=== PATIENT | female | born 1960 | race Caucasian/White ===

== ENCOUNTER 2017-08-13 16:55 | Inpatient (IN) | payer BC ==
[~2017-08-13] VITALS: Ht 167.6 cm; Wt 175.0 kg
[~2017-08-13 16:55] MED LIST: CEPH500C5 PO; CITA20TA11 PO; EST1T PO; HYDR30CR79 TOP; LORA1TAB PO; OMEP40CA37 PO; ONDA4TAB6 PO
[2017-08-13 19:26] LABS: BASOPHILS # (AUTO) 0.2 X10'3 (0-0.2); BASOPHILS % (AUTO) 0.8 % (0-1); EOSINOPHILS # (AUTO) 0.2 X10'3 (0-0.9); EOSINOPHILS % (AUTO) 0.9 % (0-6); HEMATOCRIT 48.1 % (35.0-45.0); HEMOGLOBIN 16.1 g/dl (12.0-16.0); LYMPHOCYTES # (AUTO) 0.8 X10'3 (1.1-4.8); LYMPHOCYTES % (AUTO) 4.1 % (21-51); MEAN CORPUSCULAR HEMOGLOBIN 28.8 PG (27.0-31.0); MEAN CORPUSCULAR HGB CONC 33.6 % (33.0-36.5); MEAN CORPUSCULAR VOLUME 85.8 FL (78-98); MEAN PLATELET VOLUME 9.7 FL (7.4-10.4); MONOCYTES % (AUTO) 4.7 % (2-12); NEUTROPHILS # (AUTO) 18.4 X10'3 (1.8-7.7); NEUTROPHILS % (AUTO) 89.5 % (42-75); PLATELET COUNT 242 X10'3 (140-440); RED CELL DISTRIBUTION WIDTH 14.2 % (11.5-14.5); WHITE BLOOD COUNT 20.6 X10'3 (4.5-11.0)
[2017-08-13 19:36] LABS: PROTHROMBIN TIME 10.3 SECONDS (9.0-12.0)
[2017-08-13 19:39] LABS: CLARITY,URINE SLIGHTLY CLOUDY (Clear); COLOR,URINE YELLOW (Yellow); GLUCOSE, URINE NEGATIVE (Neg); KETONES,URINE 40 mg/dl (Neg); LEUKOCYTE ESTERASE ,URINE NEGATIVE (Neg); NITRITES, URINE NEGATIVE (Neg); OCCULT BLOOD,URINE MODERATE (Neg); PH,URINE 5.5 (4.8-8.0); PROTEIN,URINE 30 mg/dl (Neg); UROBILINOGEN,URINE 0.2 E.U/dL (0.2-1.0)
[2017-08-13 19:40] LABS: UA COLLECTION TYPE CLN CATCH MIDSTREAM
[2017-08-13 19:46] LABS: ALANINE AMINOTRANSFERASE 20 U/L (12-78); ALBUMIN 3.8 G/DL (3.4-5.0); ALBUMIN/GLOBULIN RATIO 1.1 (1.1-1.5); ALKALINE PHOSPHATASE 97 IU/L (46-116); ANION GAP 12 (8-16); ASPARTATE AMINO TRANSFERASE 31 U/L (10-37); BLOOD UREA NITROGEN 9 MG/DL (7-18); CALCIUM 9.3 MG/DL (8.5-10.1); CHLORIDE 104 MMOL/L (99-107); CREATININE 0.69 MG/DL (0.40-0.90); GLUCOSE 130 MG/DL (70-104); LIPASE < 50 U/L (73-393); POTASSIUM 3.4 MMOL/L (3.5-5.1); SODIUM 141 MMOL/L (135-145); TOTAL CARBON DIOXIDE 24.7 MMOL/L (24-32); TOTAL PROTEIN 7.3 G/DL (6.4-8.2); eGFR 89 ML/MIN
[2017-08-13 19:48] LABS: MUCUS STRANDS MANY /LPF (Neg); SQUAMOUS EPITHELIAL CELL,UR MODERATE /LPF (FEW)
[2017-08-13 19:50] LABS: BACTERIA,URINE FEW /HPF (Neg)
[2017-08-13] MEDS ORDERED: proCHLORperazine 10 MG/2 ml inj IV ONE (20:15)
[2017-08-13] MEDS ORDERED: normal saline 1000ML IV soln IVB ONE (20:15)
[2017-08-13] MEDS ORDERED: ondansetron/PF 4mg/2ml inj IV ONE (20:15)
[2017-08-13] MEDS ORDERED: LORazepam 2 mg/ml vial IV ONE (20:15)
[2017-08-13] MEDS ORDERED: diphenhydrAMINE 50 mg/ml inj IV ONE (20:15)
[2017-08-13 20:33] LABS: D-DIMER 0.45 MG/L FEU (0-0.50)
[2017-08-13] MEDS ORDERED: aspirin 325mg tablet PO ONE (21:00)
[2017-08-13] MEDS ORDERED: heparin 10,000 units/1 ML INJ IV ONE (21:00)
[2017-08-13] MEDS ORDERED: iohexol 350MG/ML 100ml bottle IV ONE (21:05)
[2017-08-13 21:19] LABS: MAGNESIUM 1.8 MG/DL (1.5-2.4)
[2017-08-13] MEDS ORDERED: metroNIDAZOLE-Flagyl 500mg/NS 100 ML IV STA (21:29)
[2017-08-13] MEDS ORDERED: levoFLOXACIN-Levaquin 750MG/D5 150 ML IV STA (21:29)
[2017-08-13] MEDS: heparin 10,000 units/1 ML INJ IV PRN (21:34)
[2017-08-13] MEDS ORDERED: LORA1TAB PO (22:06)
[2017-08-13 22:25] LABS: ABG BASE EXCESS -2.5 mmol/L (-2.0-3.0); ABG HCO3 21.5 mmol/L (22.0-26.0); ABG OXYGEN SATURATION 93.9 % (95-98); ABG PCO2 (T) 35.4 mmHg (32.0-45.0); ABG PH (T) 7.403 (7.350-7.450); ABG PO2 (T) 66.5 mmHg (83-108); FCOHb 0.4 % (0.5-1.5); FLOW 6 L/min; FMetHb 0.2 % (0.3-1.12); FO2Hb 93.3 % (94-100); PATIENT TEMPERATURE 37.3; TOTAL HEMOGLOBIN 15.2 G/dl (12.0-16.0)
[2017-08-13] MEDS ORDERED: magnesium hydroxide 30ml (MOM) UD suspension PO PRN (23:05)
[2017-08-13] MEDS ORDERED: acetaminophen 325mg tablet PO PRN (23:05)
[2017-08-13] MEDS ORDERED: mag hydrox/Alum hydrox/simeth 30ml oral suspension PO PRN (23:05)
[2017-08-13] MEDS ORDERED: piperacillin/tazo 3.375gm/50ml 50 ML IV STA (23:28)
[2017-08-13 23:33] LABS: URINE AMPHETAMINE SCREEN NEGATIVE (Neg); URINE BARBITUATE SCREEN NEGATIVE (Neg); URINE BENZODIAZEPINES SCREEN NEGATIVE (Neg); URINE CANNABINOID SCREEN POSITIVE (Neg); URINE COCAINE SCREEN NEGATIVE (Neg); URINE METHADONE SCREEN NEGATIVE (Neg); URINE OPIATE SCREEN NEGATIVE (Neg); URINE PHENCYCLIDINE SCREEN NEGATIVE (Neg)
[2017-08-14] LABS: ABG HCO3 24.7 mmol/L (22.0-26.0); ABG OXYGEN SATURATION 98.5 % (95-98); ABG PCO2 (T) 35.9 mmHg (32.0-45.0); ABG PH (T) 7.453 (7.350-7.450); ABG PO2 (T) 125.2 mmHg (83-108); FCOHb 0.1 % (0.5-1.5); FMetHb 0.4 % (0.3-1.12); MINUTE VOLUME 14 L/min; PATIENT TEMPERATURE 36.5; RESPIRATORY RATE 10 b/min; RESPIRATORY RATE (OBSERVED) 20 b/min; TOTAL HEMOGLOBIN 15.6 G/dl (12.0-16.0)
[2017-08-14 03:07] LABS: BASOPHILS % (AUTO) 0.2 % (0-1); EOSINOPHILS # (AUTO) 0.2 X10'3 (0-0.9); EOSINOPHILS % (AUTO) 1.2 % (0-6); HEMATOCRIT 43.1 % (35.0-45.0); HEMOGLOBIN 14.9 g/dl (12.0-16.0); LYMPHOCYTES % (AUTO) 5.9 % (21-51); MEAN CORPUSCULAR HEMOGLOBIN 29.6 PG (27.0-31.0); MEAN CORPUSCULAR HGB CONC 34.7 % (33.0-36.5); MEAN CORPUSCULAR VOLUME 85.3 FL (78-98); MEAN PLATELET VOLUME 9.5 FL (7.4-10.4); MONOCYTES # (AUTO) 1.1 X10'3 (0-0.9); MONOCYTES % (AUTO) 6.4 % (2-12); NEUTROPHILS # (AUTO) 15.1 X10'3 (1.8-7.7); NEUTROPHILS % (AUTO) 86.3 % (42-75); PLATELET COUNT 207 X10'3 (140-440); RED BLOOD COUNT 5.05 X10'6 (4.20-5.60); RED CELL DISTRIBUTION WIDTH 13.7 % (11.5-14.5); WHITE BLOOD COUNT 17.5 X10'3 (4.5-11.0)
[2017-08-14 03:24] LABS: ALANINE AMINOTRANSFERASE 19 U/L (12-78); ALBUMIN 3.1 G/DL (3.4-5.0); ALKALINE PHOSPHATASE 79 IU/L (46-116); ANION GAP 12 (8-16); ASPARTATE AMINO TRANSFERASE 26 U/L (10-37); BILIRUBIN,TOTAL 0.9 MG/DL (0.1-1.0); BLOOD UREA NITROGEN 7 MG/DL (7-18); CALCIUM 8.5 MG/DL (8.5-10.1); CHLORIDE 105 MMOL/L (99-107); GLUCOSE 133 MG/DL (70-104); MAGNESIUM 1.6 MG/DL (1.5-2.4); PHOSPHORUS 1.7 MG/DL (2.3-4.5); SODIUM 141 MMOL/L (135-145); TOTAL CARBON DIOXIDE 23.6 MMOL/L (24-32); TOTAL PROTEIN 6.2 G/DL (6.4-8.2); eGFR 87 ML/MIN
[2017-08-14 03:28] LABS: INR 1.1 INR
[2017-08-14 03:30] LABS: POTASSIUM 2.9 MMOL/L (3.5-5.1)
[2017-08-14 03:34] LABS: PARTIAL THROMBOPLASTIN TIME 94 SECONDS (22-32)
[2017-08-14] MEDS ORDERED: magnesium Cl slow-release 64mg tablet PO PRN (03:35)
[2017-08-14] MEDS ORDERED: potassium Cl 20 mEq SR tablet PO PRN (03:35)
[2017-08-14] MEDS: piperacillin/tazo 3.375gm/50ml 50 ML IV SCH ×4 (03:59→19:23)
[2017-08-14] MEDS: potassium Cl 20 mEq SR tablet PO PRN ×2 (04:00→08:44)
[2017-08-14] MEDS ORDERED: metoclopramide 5 mg/ml inj IV ONE (04:10)
[2017-08-14] MEDS ORDERED: nitroGLYCERIN-Tridil 50MG/D5W 250 ML IV PRN (04:25)
[2017-08-14] MEDS: pantoprazole 40mg Tablet.DR PO SCH (07:53)
[2017-08-14] MEDS ORDERED: metroNIDAZOLE-Flagyl 500mg/NS 100 ML IV SCH (08:00)
[2017-08-14] MEDS: estradiol 1mg tablet PO SCH (08:45)
[2017-08-14] MEDS: K and/or MAG REPLACEMENT MC SCH (10:15)
[2017-08-14] MEDS ORDERED: regadenoson 0.4mg/5ml syringe IV ONE (12:50)
[2017-08-14] MEDS ORDERED: nitroGLYCERIN 0.4mg SUBLingual tab SL PRN (12:50)
[2017-08-14] MEDS ORDERED: CAFFEINE CITRATE 60 MG/3 ML injection vial IV PRN (12:50)
[2017-08-14] MEDS ORDERED: metoprolol tartrate 1mg/ml inj IV PRN (12:50)
[2017-08-14] MEDS ORDERED: carVEDilol 3.125mg tablet PO ONE (13:40)
[2017-08-14] MEDS ORDERED: regadenoson 0.4mg/5ml syringe IV PRN (13:40)
[2017-08-14] MEDS: heparin 10,000 units/1 ML INJ IV PRN (15:19)
[2017-08-14] MEDS ORDERED: ondansetron/PF 4mg/2ml inj IV PRN (17:45)
[2017-08-14] MEDS: chloestyramine/aspartame 4gm packet PO SCH (17:56)
[2017-08-14 19:00] VITALS: BP 146/98
[2017-08-14] MEDS: carvedilol 6.25mg tablet PO SCH (19:23)
[2017-08-14] MEDS ORDERED: LORazepam 1 MG tablet PO SCH (19:35)
[2017-08-14] MEDS: LORazepam 1 MG tablet PO PRN (19:56)
[2017-08-14] MEDS ORDERED: heparin 10,000 units/1 ML INJ IV PRN (20:40)
[2017-08-14 23:00] VITALS: BP 148/68
[2017-08-15] VITALS (14 sets, daily range): BP systolic 95–143; BP diastolic 52–94
[2017-08-15] MEDS: piperacillin/tazo 3.375gm/50ml 50 ML IV SCH ×4 (01:01→19:06)
[2017-08-15 04:26] LABS: BASOPHILS # (AUTO) 0.1 X10'3 (0-0.2); BASOPHILS % (AUTO) 0.4 % (0-1); EOSINOPHILS # (AUTO) 0.2 X10'3 (0-0.9); EOSINOPHILS % (AUTO) 1.5 % (0-6); HEMATOCRIT 40.3 % (35.0-45.0); LYMPHOCYTES # (AUTO) 1.4 X10'3 (1.1-4.8); LYMPHOCYTES % (AUTO) 8.9 % (21-51); MEAN CORPUSCULAR HEMOGLOBIN 29.6 PG (27.0-31.0); MEAN CORPUSCULAR HGB CONC 34.6 % (33.0-36.5); MEAN CORPUSCULAR VOLUME 85.3 FL (78-98); MEAN PLATELET VOLUME 9.4 FL (7.4-10.4); MONOCYTES % (AUTO) 6.3 % (2-12); NEUTROPHILS # (AUTO) 12.8 X10'3 (1.8-7.7); NEUTROPHILS % (AUTO) 82.9 % (42-75); PLATELET COUNT 203 X10'3 (140-440); RED BLOOD COUNT 4.73 X10'6 (4.20-5.60); RED CELL DISTRIBUTION WIDTH 13.8 % (11.5-14.5); WHITE BLOOD COUNT 15.4 X10'3 (4.5-11.0)
[2017-08-15 04:43] LABS: PROTHROMBIN TIME 10.5 SECONDS (9.0-12.0)
[2017-08-15 04:44] LABS: ALANINE AMINOTRANSFERASE 25 U/L (12-78); ALBUMIN 2.9 G/DL (3.4-5.0); ALBUMIN/GLOBULIN RATIO 0.9 (1.1-1.5); ALKALINE PHOSPHATASE 69 IU/L (46-116); ANION GAP 11 (8-16); ASPARTATE AMINO TRANSFERASE 19 U/L (10-37); BILIRUBIN,TOTAL 1.3 MG/DL (0.1-1.0); BLOOD UREA NITROGEN 8 MG/DL (7-18); BUN/CREATININE RATIO 11.9 (6.6-38.0); CALCIUM 8.7 MG/DL (8.5-10.1); CHLORIDE 104 MMOL/L (99-107); CREATININE 0.67 MG/DL (0.40-0.90); GLUCOSE 113 MG/DL (70-104); MAGNESIUM 1.7 MG/DL (1.5-2.4); PHOSPHORUS 1.9 MG/DL (2.3-4.5); POTASSIUM 3.4 MMOL/L (3.5-5.1); SODIUM 140 MMOL/L (135-145); TOTAL CARBON DIOXIDE 24.9 MMOL/L (24-32); TOTAL PROTEIN 6.1 G/DL (6.4-8.2); eGFR > 90 ML/MIN
[2017-08-15] MEDS: heparin 10,000 units/1 ML INJ IV PRN (05:13)
[2017-08-15] MEDS: pantoprazole 40mg Tablet.DR PO SCH (07:30)
[2017-08-15] MEDS: carvedilol 6.25mg tablet PO SCH ×2 (08:00→19:06)
[2017-08-15] MEDS: K and/or MAG REPLACEMENT MC SCH (08:00)
[2017-08-15] MEDS: estradiol 1mg tablet PO SCH (08:00)
[2017-08-15] MEDS ORDERED: regadenoson 0.4mg/5ml syringe IV ONE (09:42)
[2017-08-15] MEDS ORDERED: potassium phosphate inj 15 MMOL in normal saline 250ml IV soln 245 ML IV ONE (11:05)
[2017-08-15 11:26] LABS: C DIFF ANTIGEN NEGATIVE (NEGATIVE); C DIFF SPECIMEN=DIARRHEA? ACCEPTABLE; C DIFFICILE TOXINS A&B NEGATIVE (Neg)
[2017-08-15 11:32] LABS: CRYPTOSPORIDIUM AG NEGATIVE (Neg); GIARDIA LAMBLIA AG NEGATIVE (Neg)
[2017-08-15] MEDS: chloestyramine/aspartame 4gm packet PO SCH ×2 (12:35→16:35)
[2017-08-15] MEDS: aspirin 81mg tablet.DR PO SCH (12:35)
[2017-08-15] MEDS: lactobacillus rhamnosus 10,000 MMU CELLS/CAPSULE PO SCH (19:09)
[2017-08-15] MEDS: heparin, porcine 5000 units/ml vial SQ SCH (19:09)
[2017-08-15] MEDS: LORazepam 1 MG tablet PO PRN (21:33)
[2017-08-16] MEDS: piperacillin/tazo 3.375gm/50ml 50 ML IV SCH ×3 (01:20→14:00)
[2017-08-16 03:00] VITALS: BP 97/60
[2017-08-16 05:19] LABS: BASOPHILS % (AUTO) 0.3 % (0-1); EOSINOPHILS # (AUTO) 0.1 X10'3 (0-0.9); EOSINOPHILS % (AUTO) 2.1 % (0-6); HEMATOCRIT 39.6 % (35.0-45.0); HEMOGLOBIN 13.2 g/dl (12.0-16.0); LYMPHOCYTES # (AUTO) 1.7 X10'3 (1.1-4.8); LYMPHOCYTES % (AUTO) 26.1 % (21-51); MEAN CORPUSCULAR HEMOGLOBIN 29.1 PG (27.0-31.0); MEAN CORPUSCULAR HGB CONC 33.3 % (33.0-36.5); MEAN CORPUSCULAR VOLUME 87.4 FL (78-98); MEAN PLATELET VOLUME 9.6 FL (7.4-10.4); MONOCYTES # (AUTO) 0.5 X10'3 (0-0.9); MONOCYTES % (AUTO) 7.4 % (2-12); NEUTROPHILS # (AUTO) 4.2 X10'3 (1.8-7.7); NEUTROPHILS % (AUTO) 64.1 % (42-75); PLATELET COUNT 165 X10'3 (140-440); RED BLOOD COUNT 4.53 X10'6 (4.20-5.60); RED CELL DISTRIBUTION WIDTH 13.9 % (11.5-14.5); WHITE BLOOD COUNT 6.5 X10'3 (4.5-11.0)
[2017-08-16 05:34] LABS: PARTIAL THROMBOPLASTIN TIME 28 SECONDS (22-32)
[2017-08-16 05:46] LABS: ALANINE AMINOTRANSFERASE 23 U/L (12-78); ALBUMIN 2.6 G/DL (3.4-5.0); ALBUMIN/GLOBULIN RATIO 0.8 (1.1-1.5); ALKALINE PHOSPHATASE 57 IU/L (46-116); ANION GAP 8 (8-16); ASPARTATE AMINO TRANSFERASE 15 U/L (10-37); BILIRUBIN,TOTAL 0.8 MG/DL (0.1-1.0); BLOOD UREA NITROGEN 9 MG/DL (7-18); BUN/CREATININE RATIO 10.8 (6.6-38.0); CALCIUM 9.2 MG/DL (8.5-10.1); CHLORIDE 107 MMOL/L (99-107); CREATININE 0.83 MG/DL (0.40-0.90); GLUCOSE 95 MG/DL (70-104); PHOSPHORUS 2.8 MG/DL (2.3-4.5); POTASSIUM 3.6 MMOL/L (3.5-5.1); SODIUM 144 MMOL/L (135-145); TOTAL CARBON DIOXIDE 29.1 MMOL/L (24-32); TOTAL PROTEIN 5.8 G/DL (6.4-8.2); eGFR 72 ML/MIN
[2017-08-16 06:00] VITALS: BP 113/64
[2017-08-16] MEDS: carvedilol 6.25mg tablet PO SCH (07:38)
[2017-08-16] MEDS: estradiol 1mg tablet PO SCH (07:38)
[2017-08-16] MEDS: pantoprazole 40mg Tablet.DR PO SCH (07:38)
[2017-08-16] MEDS: lactobacillus rhamnosus 10,000 MMU CELLS/CAPSULE PO SCH (07:38)
[2017-08-16] MEDS: aspirin 81mg tablet.DR PO SCH (07:38)
[2017-08-16] MEDS: heparin, porcine 5000 units/ml vial SQ SCH (07:38)
[2017-08-16] MEDS: K and/or MAG REPLACEMENT MC SCH (07:51)
[2017-08-16] MEDS: chloestyramine/aspartame 4gm packet PO SCH (10:24)
[2017-08-16 11:00] VITALS: BP 93/60
[2017-08-16] MEDS ORDERED: POTA20TA10 PO (11:50)
[2017-08-16] MEDS ORDERED: CARV6.253 PO (11:50)
[2017-08-16] MEDS ORDERED: AMOX-580 PO (11:50)
[2017-08-16] MEDS ORDERED: QUELT PO (11:50)
== END 2017-08-16 14:20 | disposition home or self-care (01) | DRG 871 ==
LOC: ER 16:56 → ED HOLD 22:43 → PCU 3S 08-14 15:35
PROVIDERS: ADMIT Internal Medicine Critical Care Medicine; ATTEND Family Medicine
PROC: 5A09357 Assistance with Respiratory Ventilation, Less than 24 Consecutive Hours, Continuous Positive Airway Pressure (ICD-10-PCS; principal; 2017-08-13)
DX: A41.9 Sepsis, unspecified organism (principal); J81.0 Acute pulmonary edema; J90 Pleural effusion, not elsewhere classified; J18.9 Pneumonia, unspecified organism; Z68.44 Body mass index [BMI] 60.0-69.9, adult; F12.90 Cannabis use, unspecified, uncomplicated; J02.9 Acute pharyngitis, unspecified; F17.200 Nicotine dependence, unspecified, uncomplicated; K52.9 Noninfective gastroenteritis and colitis, unspecified; I10 Essential (primary) hypertension; K21.0 Gastro-esophageal reflux disease with esophagitis; E87.6 Hypokalemia; E83.39 Other disorders of phosphorus metabolism; K27.9 Peptic ulcer, site unspecified, unspecified as acute or chronic, without hemorrhage or perforation; K63.5 Polyp of colon; R09.02 Hypoxemia; Z79.899 Other long term (current) drug therapy; Z87.11 Personal history of peptic ulcer disease; Z88.6 Allergy status to analgesic agent; Z90.710 Acquired absence of both cervix and uterus; Z90.49 Acquired absence of other specified parts of digestive tract
CPT/HCPCS: 36415; 36600; 71045; 71046; 71275; 74176; 78452; 80053; 80305; 81001; 82803; 83605; 83690; 83735; 83880; 84100; 84132; 84145; 84484; 85018; 85025; 85379; 85610; 85730; 87040; 87045; 87046; 87070; 87088; 87324; 87328; 87329; 87336; 87449; 89055; 93005; 93017; 93306; 94660; 99285; A9500; J0780; J1200; J1644; J1956; J2060; J2405; J2543; J2765; J3490; J7030; Q9967

== ENCOUNTER 2017-08-28 16:27 | Emergency (ER) | payer BC ==
[~2017-08-28] VITALS: Ht 172.7 cm; Wt 63.7 kg
[~2017-08-28 16:27] MED LIST changes: +AMOX-580 PO; +CARV6.253 PO; -CEPH500C5 PO; -CITA20TA11 PO; -HYDR30CR79 TOP; -ONDA4TAB6 PO; +POTA20TA10 PO; +QUELT PO
[2017-08-28 17:38] VITALS: BP 150/89
== END 2017-08-28 17:40 | disposition home or self-care (01) ==
LOC: ER 16:28
DX: F41.0 Panic disorder [episodic paroxysmal anxiety] (principal); F12.90 Cannabis use, unspecified, uncomplicated; I21.4 Non-ST elevation (NSTEMI) myocardial infarction; K21.9 Gastro-esophageal reflux disease without esophagitis; Z90.49 Acquired absence of other specified parts of digestive tract; Z90.710 Acquired absence of both cervix and uterus; Z79.899 Other long term (current) drug therapy; Z88.5 Allergy status to narcotic agent; Z88.8 Allergy status to other drugs, medicaments and biological substances
CPT/HCPCS: 93005; 99283; 99284

== ENCOUNTER 2017-12-16 12:16 | Emergency (ER) | payer BC ==
[~2017-12-16] VITALS: Ht 167.6 cm; Wt 80.0 kg
[~2017-12-16 12:16] MED LIST changes: -AMOX-580 PO
[2017-12-16] MEDS ORDERED: dexamethasone 4mg/ml inj IV ONE (12:35)
[2017-12-16] MEDS ORDERED: proCHLORperazine 10 MG/2 ml inj IV ONE (12:35)
[2017-12-16 13:07] LABS: BASOPHILS # (AUTO) 0.1 X10'3 (0-0.2); BASOPHILS % (AUTO) 0.3 % (0-1); EOSINOPHILS # (AUTO) 0.2 X10'3 (0-0.9); EOSINOPHILS % (AUTO) 1.4 % (0-6); HEMATOCRIT 45.5 % (35.0-45.0); HEMOGLOBIN 15.4 g/dl (12.0-16.0); LYMPHOCYTES # (AUTO) 1.2 X10'3 (1.1-4.8); LYMPHOCYTES % (AUTO) 7.3 % (21-51); MEAN CORPUSCULAR HEMOGLOBIN 28.9 PG (27.0-31.0); MEAN CORPUSCULAR HGB CONC 33.9 % (33.0-36.5); MEAN CORPUSCULAR VOLUME 85.3 FL (78-98); MEAN PLATELET VOLUME 9.4 FL (7.4-10.4); MONOCYTES # (AUTO) 0.3 X10'3 (0-0.9); MONOCYTES % (AUTO) 1.8 % (2-12); NEUTROPHILS # (AUTO) 14.7 X10'3 (1.8-7.7); NEUTROPHILS % (AUTO) 89.2 % (42-75); PLATELET COUNT 296 X10'3 (140-440); RED BLOOD COUNT 5.34 X10'6 (4.20-5.60); RED CELL DISTRIBUTION WIDTH 13.3 % (11.5-14.5); WHITE BLOOD COUNT 16.5 X10'3 (4.5-11.0)
[2017-12-16 13:11] LABS: URINE HCG NEGATIVE (NEG)
[2017-12-16] MEDS ORDERED: normal saline 1000ml 1,000 ML IV ONE (13:15)
[2017-12-16 13:17] LABS: PARTIAL THROMBOPLASTIN TIME 26 SECONDS (22-32); PROTHROMBIN TIME 10.7 SECONDS (9.0-12.0)
[2017-12-16 13:23] LABS: ALANINE AMINOTRANSFERASE 20 U/L (12-78); ALBUMIN 4.2 G/DL (3.4-5.0); ALBUMIN/GLOBULIN RATIO 1.2 (1.1-1.5); ALKALINE PHOSPHATASE 115 IU/L (46-116); ANION GAP 17 (8-16); ASPARTATE AMINO TRANSFERASE 19 U/L (10-37); BILIRUBIN,TOTAL 0.7 MG/DL (0.1-1.0); BLOOD UREA NITROGEN 11 MG/DL (7-18); BUN/CREATININE RATIO 12.9 (6.6-38.0); CALCIUM 8.8 MG/DL (8.5-10.1); CHLORIDE 105 MMOL/L (99-107); CREATININE 0.85 MG/DL (0.40-0.90); GLUCOSE 119 MG/DL (70-104); POTASSIUM 3.5 MMOL/L (3.5-5.1); SODIUM 139 MMOL/L (135-145); TOTAL CARBON DIOXIDE 16.6 MMOL/L (24-32); TOTAL PROTEIN 7.8 G/DL (6.4-8.2); eGFR 69 ML/MIN
[2017-12-16 13:32] LABS: CLARITY,URINE CLEAR (Clear); COLOR,URINE YELLOW (Yellow); GLUCOSE, URINE NEGATIVE (Neg); KETONES,URINE 40 mg/dl (Neg); LEUKOCYTE ESTERASE ,URINE NEGATIVE (Neg); NITRITES, URINE NEGATIVE (Neg); OCCULT BLOOD,URINE TRACE-INTACT (Neg); PROTEIN,URINE NEGATIVE (Neg); UROBILINOGEN,URINE 0.2 E.U/dL (0.2-1.0)
[2017-12-16] MEDS ORDERED: LORazepam 2 mg/ml vial IV ONE (13:35)
[2017-12-16] MEDS ORDERED: diphenhydrAMINE 50 mg/ml inj IV ONE (13:35)
[2017-12-16 13:45] LABS: UA COLLECTION TYPE OTHER
[2017-12-16 13:46] LABS: RBC,URINE 0-2 /HPF (0-2); SQUAMOUS EPITHELIAL CELL,UR MODERATE /LPF (FEW); WBC,URINE 0-4 /HPF (0-4)
[2017-12-16 13:47] LABS: BACTERIA,URINE FEW /HPF (Neg); MUCUS STRANDS FEW /LPF (Neg); YEAST FEW /HPF (NEGATIVE)
[2017-12-16] MEDS ORDERED: ONDA8TAB9 PO (14:22)
[2017-12-16 15:27] VITALS: BP 150/78
== END 2017-12-16 15:32 | disposition home or self-care (01) ==
LOC: ER 12:16
DX: K52.9 Noninfective gastroenteritis and colitis, unspecified (principal); K21.9 Gastro-esophageal reflux disease without esophagitis; F12.90 Cannabis use, unspecified, uncomplicated; Z88.5 Allergy status to narcotic agent; Z90.49 Acquired absence of other specified parts of digestive tract; Z90.710 Acquired absence of both cervix and uterus; Z79.899 Other long term (current) drug therapy
CPT/HCPCS: 36415; 71045; 80053; 81001; 81025; 84484; 85025; 85610; 85730; 93005; 96361; 96374; 96375; 99285; J0780; J1100; J1200; J2060; J7030; J7040

== ENCOUNTER 2017-12-19 18:05 | Emergency (ER) | payer BC ==
[~2017-12-19] VITALS: Ht 167.6 cm; Wt 85.0 kg
[~2017-12-19 18:05] MED LIST changes: +ONDA8TAB9 PO
[2017-12-19] MEDS ORDERED: proCHLORperazine 10 MG/2 ml inj IV PRN (18:35)
[2017-12-19 18:37] LABS: BASOPHILS # (AUTO) 0.1 X10'3 (0-0.2); BASOPHILS % (AUTO) 0.3 % (0-1); EOSINOPHILS # (AUTO) 0.1 X10'3 (0-0.9); EOSINOPHILS % (AUTO) 0.7 % (0-6); HEMATOCRIT 49.7 % (35.0-45.0); HEMOGLOBIN 16.9 g/dl (12.0-16.0); LYMPHOCYTES # (AUTO) 3.4 X10'3 (1.1-4.8); LYMPHOCYTES % (AUTO) 21.1 % (21-51); MEAN CORPUSCULAR HEMOGLOBIN 28.5 PG (27.0-31.0); MEAN CORPUSCULAR VOLUME 83.7 FL (78-98); MEAN PLATELET VOLUME 9.3 FL (7.4-10.4); MONOCYTES # (AUTO) 1.2 X10'3 (0-0.9); MONOCYTES % (AUTO) 7.2 % (2-12); NEUTROPHILS # (AUTO) 11.4 X10'3 (1.8-7.7); NEUTROPHILS % (AUTO) 70.7 % (42-75); PLATELET COUNT 374 X10'3 (140-440); RED BLOOD COUNT 5.94 X10'6 (4.20-5.60); RED CELL DISTRIBUTION WIDTH 13.1 % (11.5-14.5); WHITE BLOOD COUNT 16.1 X10'3 (4.5-11.0)
[2017-12-19] MEDS ORDERED: normal saline 1000ml 1,000 ML IV ONE (18:40)
[2017-12-19 18:48] LABS: PROTHROMBIN TIME 10.8 SECONDS (9.0-12.0)
[2017-12-19] MEDS ORDERED: normal saline 1000ML IV soln IV ONE (18:50)
[2017-12-19 18:52] LABS: ALANINE AMINOTRANSFERASE 28 U/L (12-78); ALBUMIN 4.2 G/DL (3.4-5.0); ALBUMIN/GLOBULIN RATIO 1.1 (1.1-1.5); ALKALINE PHOSPHATASE 100 IU/L (46-116); ANION GAP 14 (8-16); ASPARTATE AMINO TRANSFERASE 16 U/L (10-37); BILIRUBIN,TOTAL 0.9 MG/DL (0.1-1.0); BLOOD UREA NITROGEN 17 MG/DL (7-18); CALCIUM 9.6 MG/DL (8.5-10.1); CHLORIDE 97 MMOL/L (99-107); CREATININE 1.06 MG/DL (0.40-0.90); GLUCOSE 160 MG/DL (70-104); SODIUM 134 MMOL/L (135-145); TOTAL CARBON DIOXIDE 23.5 MMOL/L (24-32); TOTAL PROTEIN 7.9 G/DL (6.4-8.2); eGFR 54 ML/MIN
[2017-12-19 18:56] LABS: POTASSIUM 2.6 MMOL/L (3.5-5.1)
[2017-12-19] MEDS: potassium 10mEq/100ml NS w/LIDOcaine (10mg/bag) IV SCH ×2 (19:23→21:08)
[2017-12-19 20:35] LABS: CLARITY,URINE CLEAR (Clear); COLOR,URINE YELLOW (Yellow); GLUCOSE, URINE NEGATIVE (Neg); KETONES,URINE TRACE mg/dl (Neg); LEUKOCYTE ESTERASE ,URINE TRACE (Neg); NITRITES, URINE NEGATIVE (Neg); OCCULT BLOOD,URINE TRACE-LYSED (Neg); PH,URINE 6.5 (4.8-8.0); PROTEIN,URINE NEGATIVE (Neg); UROBILINOGEN,URINE 0.2 E.U/dL (0.2-1.0)
[2017-12-19 20:41] LABS: UA COLLECTION TYPE CLN CATCH MIDSTREAM
[2017-12-19 20:43] LABS: BACTERIA,URINE FEW /HPF (Neg); MUCUS STRANDS NONE SEEN /LPF (Neg); RBC,URINE 0-2 /HPF (0-2); SQUAMOUS EPITHELIAL CELL,UR FEW /LPF (FEW); WBC,URINE 0-4 /HPF (0-4)
[2017-12-19 21:12] VITALS: BP 169/88
== END 2017-12-19 21:52 | disposition home or self-care (01) ==
LOC: ER 18:06
DX: R11.2 Nausea with vomiting, unspecified (principal); R19.7 Diarrhea, unspecified; E87.6 Hypokalemia; K21.9 Gastro-esophageal reflux disease without esophagitis; F12.90 Cannabis use, unspecified, uncomplicated; Z90.49 Acquired absence of other specified parts of digestive tract; Z90.710 Acquired absence of both cervix and uterus; Z88.5 Allergy status to narcotic agent; Z79.899 Other long term (current) drug therapy
CPT/HCPCS: 36415; 80053; 81001; 85025; 85610; 87088; 96365; 96366; 96375; 99284; J0780; J3480; 96376

== ENCOUNTER 2018-01-06 12:14 | Emergency (ER) | payer BC ==
[~2018-01-06] VITALS: Ht 167.6 cm; Wt 70.9 kg
[2018-01-06] MEDS ORDERED: ketorolac tromethamine 15mg/ml inj. IV ONE (13:40)
[2018-01-06] MEDS ORDERED: normal saline 1000ML IV soln IV ONE (13:40)
[2018-01-06] MEDS ORDERED: ondansetron/PF 4mg/2ml inj IV ONE (13:45)
[2018-01-06] MEDS ORDERED: fentaNYL/PF 50MCG/1 ML 2ML syringe IV ONE (14:05)
[2018-01-06 14:11] LABS: URINE HCG NEGATIVE (NEG)
[2018-01-06] MEDS ORDERED: LORazepam 2 mg/ml vial IV ONE (14:15)
[2018-01-06 14:16] LABS: COLOR,URINE RED (Yellow)
[2018-01-06 14:21] LABS: CLARITY,URINE BLOODY (Clear); UA COLLECTION TYPE NON-SPECIFIED
[2018-01-06 14:28] LABS: RBC,URINE TNTC /HPF (0-2)
[2018-01-06 14:33] LABS: WBC,URINE 50-100 /HPF (0-4)
[2018-01-06 14:34] LABS: HEMATOCRIT 48.7 % (35.0-45.0); RED BLOOD COUNT 5.71 X10'6 (4.20-5.60); WHITE BLOOD COUNT 18.1 X10'3 (4.5-11.0)
[2018-01-06 14:35] LABS: BASOPHILS # (AUTO) 0.1 X10'3 (0-0.2); BASOPHILS % (AUTO) 0.5 % (0-1); EOSINOPHILS % (AUTO) 0 % (0-6); LYMPHOCYTES # (AUTO) 1.6 X10'3 (1.1-4.8); LYMPHOCYTES % (AUTO) 8.7 % (21-51); MEAN CORPUSCULAR HEMOGLOBIN 29.7 PG (27.0-31.0); MEAN CORPUSCULAR HGB CONC 34.8 % (33.0-36.5); MEAN CORPUSCULAR VOLUME 85.3 FL (78-98); MEAN PLATELET VOLUME 9.9 FL (7.4-10.4); MONOCYTES % (AUTO) 5.4 % (2-12); NEUTROPHILS # (AUTO) 15.4 X10'3 (1.8-7.7); NEUTROPHILS % (AUTO) 85.4 % (42-75); PLATELET COUNT 382 X10'3 (140-440)
[2018-01-06 14:36] LABS: BACTERIA,URINE NONE SEEN /HPF (Neg); SQUAMOUS EPITHELIAL CELL,UR MANY /LPF (FEW)
[2018-01-06 14:40] LABS: ALANINE AMINOTRANSFERASE 20 U/L (12-78); ALBUMIN 4.5 G/DL (3.4-5.0); ALBUMIN/GLOBULIN RATIO 1.3 (1.1-1.5); ALKALINE PHOSPHATASE 90 IU/L (46-116); ANION GAP 16 (8-16); ASPARTATE AMINO TRANSFERASE 13 U/L (10-37); BILIRUBIN,TOTAL 0.9 MG/DL (0.1-1.0); BLOOD UREA NITROGEN 15 MG/DL (7-18); BUN/CREATININE RATIO 11.5 (6.6-38.0); CALCIUM 10.6 MG/DL (8.5-10.1); CHLORIDE 99 MMOL/L (99-107); CREATININE 1.31 MG/DL (0.40-0.90); GLUCOSE 112 MG/DL (70-104); POTASSIUM 3.7 MMOL/L (3.5-5.1); SODIUM 137 MMOL/L (135-145); TOTAL CARBON DIOXIDE 22.4 MMOL/L (24-32); TOTAL PROTEIN 8.1 G/DL (6.4-8.2); eGFR 42 ML/MIN
[2018-01-06] MEDS ORDERED: CefTRIAXone/D5W-Rocephin 1gm 50 ML IV ONE (14:45)
[2018-01-06 15:30] VITALS: BP 122/62
[2018-01-06] MEDS ORDERED: CIPR-230 PO (15:30)
[2018-01-06 15:37] LABS: CLARITY,URINE CLOUDY (Clear); COLOR,URINE RED (Yellow); GLUCOSE, URINE NEGATIVE (Neg); KETONES,URINE 40 mg/dl (Neg); LEUKOCYTE ESTERASE ,URINE LARGE (Neg); NITRITES, URINE NEGATIVE (Neg); OCCULT BLOOD,URINE LARGE (Neg); PROTEIN,URINE 100 mg/dl (Neg); UROBILINOGEN,URINE 0.2 E.U/dL (0.2-1.0)
[2018-01-06 15:39] LABS: UA COLLECTION TYPE CLN CATCH MIDSTREAM
[2018-01-06] MEDS ORDERED: PHE12.5T PO (15:44)
[2018-01-06 15:49] LABS: BACTERIA,URINE 2+ /HPF (Neg); RBC,URINE TNTC /HPF (0-2); SQUAMOUS EPITHELIAL CELL,UR MODERATE /LPF (FEW); WBC,URINE 50-100 /HPF (0-4)
== END 2018-01-06 16:08 | disposition home or self-care (01) ==
LOC: ER 12:14
DX: N39.0 Urinary tract infection, site not specified (principal); R11.2 Nausea with vomiting, unspecified; K21.9 Gastro-esophageal reflux disease without esophagitis; F12.90 Cannabis use, unspecified, uncomplicated; Z87.11 Personal history of peptic ulcer disease; Z87.442 Personal history of urinary calculi; Z90.49 Acquired absence of other specified parts of digestive tract; Z90.710 Acquired absence of both cervix and uterus; Z88.5 Allergy status to narcotic agent; Z79.899 Other long term (current) drug therapy; Z95.5 Presence of coronary angioplasty implant and graft
CPT/HCPCS: 36415; 80053; 81001; 81025; 85025; 87077; 87088; 96361; 96365; 96375; 99284; J0696; J2060; J2405; J3010

== ENCOUNTER 2018-01-09 10:01 | Emergency (ER) | payer BC ==
[~2018-01-09] VITALS: Ht 167.6 cm; Wt 71.0 kg
[~2018-01-09 10:01] MED LIST changes: +CIPR-230 PO; +PHE12.5T PO
[2018-01-09 11:03] LABS: INR 1.1 INR
[2018-01-09 11:09] LABS: ALANINE AMINOTRANSFERASE 19 U/L (12-78); ALBUMIN 3.9 G/DL (3.4-5.0); ALBUMIN/GLOBULIN RATIO 1.1 (1.1-1.5); ALKALINE PHOSPHATASE 94 IU/L (46-116); ANION GAP 18 (8-16); ASPARTATE AMINO TRANSFERASE 15 U/L (10-37); BLOOD UREA NITROGEN 9 MG/DL (7-18); BUN/CREATININE RATIO 9.7 (6.6-38.0); CALCIUM 9.7 MG/DL (8.5-10.1); CHLORIDE 99 MMOL/L (99-107); CREATININE 0.93 MG/DL (0.40-0.90); GLUCOSE 108 MG/DL (70-104); SODIUM 138 MMOL/L (135-145); TOTAL CARBON DIOXIDE 20.7 MMOL/L (24-32); TOTAL PROTEIN 7.5 G/DL (6.4-8.2); eGFR 63 ML/MIN
[2018-01-09 11:11] LABS: POTASSIUM 2.9 MMOL/L (3.5-5.1)
[2018-01-09] MEDS ORDERED: proCHLORperazine 10 MG/2 ml inj IV ONE (11:20)
[2018-01-09] MEDS ORDERED: potassium 10mEq/100ml NS w/LIDOcaine (10mg/bag) IV ONE (11:20)
[2018-01-09] MEDS ORDERED: normal saline 1000ML IV soln IVB ONE (11:20)
[2018-01-09 11:37] LABS: BASOPHILS % (AUTO) 0 % (0-1); EOSINOPHILS % (AUTO) 0.3 % (0-6); HEMATOCRIT 48.4 % (35.0-45.0); HEMOGLOBIN 16.4 g/dl (12.0-16.0); LYMPHOCYTES # (AUTO) 1.7 X10'3 (1.1-4.8); LYMPHOCYTES % (AUTO) 10.4 % (21-51); MEAN CORPUSCULAR HEMOGLOBIN 28.8 PG (27.0-31.0); MEAN CORPUSCULAR HGB CONC 33.8 % (33.0-36.5); MEAN CORPUSCULAR VOLUME 85.1 FL (78-98); MEAN PLATELET VOLUME 9.7 FL (7.4-10.4); MONOCYTES # (AUTO) 0.9 X10'3 (0-0.9); MONOCYTES % (AUTO) 5.8 % (2-12); NEUTROPHILS # (AUTO) 13.5 X10'3 (1.8-7.7); NEUTROPHILS % (AUTO) 83.5 % (42-75); PLATELET COUNT 304 X10'3 (140-440); RED BLOOD COUNT 5.69 X10'6 (4.20-5.60); RED CELL DISTRIBUTION WIDTH 12.9 % (11.5-14.5); WHITE BLOOD COUNT 16.1 X10'3 (4.5-11.0)
[2018-01-09 12:07] LABS: URINE HCG NEGATIVE (NEG)
[2018-01-09 12:21] LABS: CLARITY,URINE SLIGHTLY CLOUDY (Clear); COLOR,URINE YELLOW (Yellow); GLUCOSE, URINE NEGATIVE (Neg); KETONES,URINE >=80 mg/dl (Neg); LEUKOCYTE ESTERASE ,URINE LARGE (Neg); NITRITES, URINE NEGATIVE (Neg); OCCULT BLOOD,URINE LARGE (Neg); PROTEIN,URINE 100 mg/dl (Neg); UA COLLECTION TYPE CLN CATCH MIDSTREAM; UROBILINOGEN,URINE 0.2 E.U/dL (0.2-1.0)
[2018-01-09 12:28] LABS: MUCUS STRANDS MODERATE /LPF (Neg); SQUAMOUS EPITHELIAL CELL,UR MANY /LPF (FEW)
[2018-01-09 12:29] LABS: WBC,URINE TNTC /HPF (0-4)
[2018-01-09 12:30] LABS: RBC,URINE 50-100 /HPF (0-2)
[2018-01-09 12:40] LABS: BACTERIA,URINE 1+ /HPF (Neg)
[2018-01-09 12:47] LABS: URINE AMPHETAMINE SCREEN NEGATIVE (Neg); URINE BARBITUATE SCREEN NEGATIVE (Neg); URINE BENZODIAZEPINES SCREEN NEGATIVE (Neg); URINE CANNABINOID SCREEN POSITIVE (Neg); URINE COCAINE SCREEN NEGATIVE (Neg); URINE METHADONE SCREEN NEGATIVE (Neg); URINE OPIATE SCREEN NEGATIVE (Neg); URINE PHENCYCLIDINE SCREEN NEGATIVE (Neg)
[2018-01-09] MEDS ORDERED: POTA10CA44 PO (13:36)
[2018-01-09 14:31] VITALS: BP 173/108
== END 2018-01-09 14:43 | disposition home or self-care (01) ==
LOC: ER 10:02
DX: R11.2 Nausea with vomiting, unspecified (principal); F15.10 Other stimulant abuse, uncomplicated; N39.0 Urinary tract infection, site not specified; K21.9 Gastro-esophageal reflux disease without esophagitis; Z90.49 Acquired absence of other specified parts of digestive tract; Z90.710 Acquired absence of both cervix and uterus; Z88.5 Allergy status to narcotic agent; Z79.899 Other long term (current) drug therapy
CPT/HCPCS: 36415; 74176; 80053; 80305; 80320; 81001; 81025; 85025; 85610; 87088; 96361; 96374; 99285; J0780; J3480; J7030

== ENCOUNTER 2019-02-18 08:33 | Emergency (ER) | payer BC ==
[~2019-02-18] VITALS: Ht 167.6 cm; Wt 82.0 kg
[~2019-02-18 08:33] MED LIST changes: -CIPR-230 PO; +OMEP40CA13 PO; -OMEP40CA37 PO; -PHE12.5T PO; +PROM12.512 PO
[2019-02-18] MEDS ORDERED: normal saline 1000ML IV soln IVB ONE (08:50)
[2019-02-18 09:34] LABS: BASOPHILS % (AUTO) 0.3 % (0-1); EOSINOPHILS # (AUTO) 0.1 X10'3 (0-0.9); EOSINOPHILS % (AUTO) 0.7 % (0-6); HEMATOCRIT 49.7 % (35.0-45.0); HEMOGLOBIN 16.7 g/dl (12.0-16.0); LYMPHOCYTES # (AUTO) 2.1 X10'3 (1.1-4.8); LYMPHOCYTES % (AUTO) 12.4 % (21-51); MEAN CORPUSCULAR HEMOGLOBIN 29.4 PG (27.0-31.0); MEAN CORPUSCULAR HGB CONC 33.7 g/dL (33.0-36.5); MEAN CORPUSCULAR VOLUME 87.1 FL (78-98); MEAN PLATELET VOLUME 9.3 FL (7.4-10.4); MONOCYTES # (AUTO) 0.7 X10'3 (0-0.9); MONOCYTES % (AUTO) 3.9 % (2-12); NEUTROPHILS # (AUTO) 14.2 X10'3 (1.8-7.7); NEUTROPHILS % (AUTO) 82.7 % (42-75); PLATELET COUNT 290 X10'3 (140-440); RED CELL DISTRIBUTION WIDTH 13.7 % (11.5-14.5); WHITE BLOOD COUNT 17.2 X10'3 (4.5-11.0)
[2019-02-18] MEDS ORDERED: ondansetron/PF 4mg/2ml inj IV ONE (09:45)
[2019-02-18] MEDS ORDERED: pantoprazole 40 MG vial IV ONE (09:45)
[2019-02-18 09:56] LABS: CHLORIDE 107 MMOL/L (99-107); GLUCOSE 133 MG/DL (70-104); POTASSIUM 4.1 MMOL/L (3.5-5.1); SODIUM 143 MMOL/L (135-145); TOTAL CARBON DIOXIDE 21.4 MMOL/L (24-32)
[2019-02-18 09:57] LABS: ALANINE AMINOTRANSFERASE 22 U/L (12-78); ALBUMIN 4.3 G/DL (3.4-5.0); ALBUMIN/GLOBULIN RATIO 1.1 (1.1-1.5); ALKALINE PHOSPHATASE 90 IU/L (46-116); ANION GAP 15 (8-16); ASPARTATE AMINO TRANSFERASE 21 U/L (10-37); BILIRUBIN,TOTAL 0.5 MG/DL (0.1-1.0); BLOOD UREA NITROGEN 15 MG/DL (7-18); BUN/CREATININE RATIO 17.4 (6.6-38.0); CALCIUM 9.7 MG/DL (8.5-10.1); CREATININE 0.86 MG/DL (0.40-0.90); LIPASE 123 U/L (73-393); TOTAL PROTEIN 8.2 G/DL (6.4-8.2); eGFR 68 ML/MIN
[2019-02-18 10:23] LABS: CLARITY,URINE CLEAR (Clear); COLOR,URINE YELLOW (Yellow); GLUCOSE, URINE NEGATIVE (Neg); KETONES,URINE TRACE mg/dl (Neg); LEUKOCYTE ESTERASE ,URINE NEGATIVE (Neg); NITRITES, URINE NEGATIVE (Neg); OCCULT BLOOD,URINE NEGATIVE (Neg); PH,URINE 7.5 (4.8-8.0); PROTEIN,URINE NEGATIVE (Neg); URINE HCG NEGATIVE (NEG); UROBILINOGEN,URINE 0.2 E.U/dL (0.2-1.0)
[2019-02-18 10:24] LABS: UA COLLECTION TYPE STRAIGHT CATH
[2019-02-18] MEDS ORDERED: diazepam inj 5 MG/ML inj. IV ONE (10:40)
--- NOTE | 2019-02-18 11:50 | NUR ---
pt resting quietly, denies pain
--- NOTE | 2019-02-18 13:05 | NUR ---
stool specimen sent
--- NOTE | 2019-02-18 13:10 | NUR ---
pt states, my roommate has c-diff
[2019-02-18] MEDS ORDERED: proCHLORperazine 10 MG/2 ml inj IV ONE (13:20)
--- NOTE | 2019-02-18 14:10 | NUR ---
PT STATES, FEELING MUCH BETTER, PAIN ON PAINSCALE 4.
[2019-02-18] MEDS ORDERED: PROC25SU31 RC (14:16)
--- NOTE | 2019-02-18 14:23 | NUR ---
TAKING SIPS OF WATER. NO NAUSEA
[2019-02-18 14:30] LABS: C DIFF ANTIGEN NEGATIVE (NEGATIVE); C DIFF SPECIMEN=DIARRHEA? ACCEPTABLE; C DIFFICILE TOXINS A&B NEGATIVE (Neg)
[2019-02-18 14:35] VITALS: BP 160/68
== END 2019-02-18 15:25 | disposition home or self-care (01) ==
LOC: ER 08:34
DX: K52.9 Noninfective gastroenteritis and colitis, unspecified (principal); K21.9 Gastro-esophageal reflux disease without esophagitis; F17.200 Nicotine dependence, unspecified, uncomplicated; F12.90 Cannabis use, unspecified, uncomplicated; Z87.11 Personal history of peptic ulcer disease; Z87.442 Personal history of urinary calculi; Z88.5 Allergy status to narcotic agent; Z79.899 Other long term (current) drug therapy
CPT/HCPCS: 36415; 80053; 81003; 81025; 83690; 85025; 87045; 87046; 87324; 87449; 89055; 93005; 96361; 96374; 96375; 99284; C9113; J0780; J2405; J3360; J7030

== ENCOUNTER 2019-02-21 11:10 | Emergency (ER) | payer BC ==
[~2019-02-21] VITALS: Ht 167.6 cm; Wt 79.8 kg
[~2019-02-21 11:10] MED LIST changes: +PROC25SU31 RC
[2019-02-21 11:57] LABS: URINE HCG NEGATIVE (NEG)
[2019-02-21 12:07] LABS: CLARITY,URINE SLIGHTLY CLOUDY (Clear); GLUCOSE, URINE NEGATIVE (Neg); KETONES,URINE 40 mg/dl (Neg); LEUKOCYTE ESTERASE ,URINE NEGATIVE (Neg); NITRITES, URINE NEGATIVE (Neg); OCCULT BLOOD,URINE MODERATE (Neg); PROTEIN,URINE 100 mg/dl (Neg); UROBILINOGEN,URINE 0.2 E.U/dL (0.2-1.0)
[2019-02-21 12:14] LABS: COLOR,URINE DARK YELLOW (Yellow); UA COLLECTION TYPE CLN CATCH MIDSTREAM
[2019-02-21 12:16] LABS: BASOPHILS # (AUTO) 0.1 X10'3 (0-0.2); BASOPHILS % (AUTO) 0.4 % (0-1); EOSINOPHILS % (AUTO) 0 % (0-6); HEMATOCRIT 52.1 % (35.0-45.0); HEMOGLOBIN 17.8 g/dl (12.0-16.0); LYMPHOCYTES # (AUTO) 2.2 X10'3 (1.1-4.8); LYMPHOCYTES % (AUTO) 12.4 % (21-51); MEAN CORPUSCULAR HGB CONC 34.1 g/dL (33.0-36.5); MEAN PLATELET VOLUME 9.1 FL (7.4-10.4); MONOCYTES % (AUTO) 5.7 % (2-12); NEUTROPHILS % (AUTO) 81.5 % (42-75); RED CELL DISTRIBUTION WIDTH 13.5 % (11.5-14.5); WHITE BLOOD COUNT 17.6 X10'3 (4.5-11.0)
[2019-02-21 12:18] LABS: MEAN CORPUSCULAR HEMOGLOBIN 29.9 PG (27.0-31.0); MEAN CORPUSCULAR VOLUME 87.5 FL (78-98); NEUTROPHILS # (AUTO) 14.4 X10'3 (1.8-7.7); PLATELET COUNT 352 X10'3 (140-440); RED BLOOD COUNT 5.96 X10'6 (4.20-5.60)
[2019-02-21 12:26] LABS: ALANINE AMINOTRANSFERASE 28 U/L (12-78); ALBUMIN 4.6 G/DL (3.4-5.0); ALBUMIN/GLOBULIN RATIO 1.2 (1.1-1.5); ALKALINE PHOSPHATASE 100 IU/L (46-116); ANION GAP 15 (8-16); ASPARTATE AMINO TRANSFERASE 20 U/L (10-37); BILIRUBIN,TOTAL 0.8 MG/DL (0.1-1.0); BLOOD UREA NITROGEN 20 MG/DL (7-18); BUN/CREATININE RATIO 20.8 (6.6-38.0); CALCIUM 10.2 MG/DL (8.5-10.1); CHLORIDE 101 MMOL/L (99-107); CREATININE 0.96 MG/DL (0.40-0.90); GLUCOSE 124 MG/DL (70-104); LIPASE 86 U/L (73-393); POTASSIUM 3.3 MMOL/L (3.5-5.1); SODIUM 138 MMOL/L (135-145); TOTAL CARBON DIOXIDE 21.8 MMOL/L (24-32); TOTAL PROTEIN 8.6 G/DL (6.4-8.2); eGFR 60 ML/MIN
[2019-02-21 12:57] LABS: SQUAMOUS EPITHELIAL CELL,UR MANY /LPF (FEW)
[2019-02-21 13:06] LABS: BACTERIA,URINE FEW /HPF (Neg); CAL OXALATE CRYSTALS FEW /HPF (NEGATIVE); WBC,URINE 0-4 /HPF (0-4)
[2019-02-21 13:07] LABS: MUCUS STRANDS MODERATE /LPF (Neg); RBC,URINE NONE SEEN /HPF (0-2)
[2019-02-21] MEDS ORDERED: normal saline 1000ML IV soln IVB ONE (13:30)
[2019-02-21] MEDS ORDERED: famotidine/PF 10 mg/ml inj IV ONE (13:30)
[2019-02-21] MEDS ORDERED: ondansetron/PF 4mg/2ml inj IV ONE (13:30)
[2019-02-21] MEDS ORDERED: iohexol 300mg/ml 100ml inj. ONE (14:09)
[2019-02-21] MEDS ORDERED: iohexol 350MG/ML 100ml bottle IV ONE (14:10)
[2019-02-21] MEDS ORDERED: AMOX-419 PO (14:39)
[2019-02-21] MEDS ORDERED: ONDA4TAB6 PO (14:39)
[2019-02-21] MEDS ORDERED: cloNIDine 0.1 mg tablet PO ONE (15:55)
[2019-02-21 16:28] VITALS: BP 186/113
== END 2019-02-21 16:33 | disposition home or self-care (01) ==
LOC: ER 11:10
DX: K52.9 Noninfective gastroenteritis and colitis, unspecified (principal); R11.2 Nausea with vomiting, unspecified; R10.30 Lower abdominal pain, unspecified; F12.90 Cannabis use, unspecified, uncomplicated; K21.9 Gastro-esophageal reflux disease without esophagitis; Z87.11 Personal history of peptic ulcer disease; Z87.442 Personal history of urinary calculi; Z90.49 Acquired absence of other specified parts of digestive tract; Z90.710 Acquired absence of both cervix and uterus; Z88.5 Allergy status to narcotic agent; Z79.899 Other long term (current) drug therapy
CPT/HCPCS: 36415; 74177; 80053; 81001; 81025; 83690; 85025; 96361; 96374; 96375; 99284; J2405; J3490; J7030; Q9967

== ENCOUNTER 2022-05-11 10:44 | Emergency (ER) | payer BC, SELFPAY ==
[~2022-05-11] VITALS: Ht 167.6 cm; Wt 72.7 kg
[~2022-05-11 10:44] MED LIST changes: -OMEP40CA13 PO; +OMEP40CA21 PO; +ONDA4TAB6 PO; +POTA-197 PO; -POTA20TA10 PO; -PROC25SU31 RC
[2022-05-11 11:42] LABS: BASOPHILS % (AUTO) 0.2 % (0-1); EOSINOPHILS % (AUTO) 0 % (0-6); HEMOGLOBIN 17.1 g/dl (12.0-16.0); LYMPHOCYTES # (AUTO) 1.5 X10'3 (1.1-4.8); LYMPHOCYTES % (AUTO) 8.1 % (21-51); MEAN CORPUSCULAR HEMOGLOBIN 29.3 PG (27.0-31.0); MEAN CORPUSCULAR HGB CONC 34.2 g/dL (33.0-36.5); MEAN CORPUSCULAR VOLUME 85.5 FL (78-98); MEAN PLATELET VOLUME 8.7 FL (7.4-10.4); MONOCYTES # (AUTO) 0.8 X10'3 (0-0.9); MONOCYTES % (AUTO) 4.4 % (2-12); NEUTROPHILS # (AUTO) 15.6 X10'3 (1.8-7.7); NEUTROPHILS % (AUTO) 87.3 % (42-75); PLATELET COUNT 341 X10'3 (140-440); RED BLOOD COUNT 5.84 X10'6 (4.20-5.60); RED CELL DISTRIBUTION WIDTH 13.1 % (11.5-14.5); WHITE BLOOD COUNT 17.9 X10'3 (4.5-11.0)
[2022-05-11] MEDS ORDERED: diphenhydrAMINE 50 mg/ml inj IV ONE (11:45)
[2022-05-11] MEDS ORDERED: normal saline 1000ML IV soln IVB ONE (11:45)
[2022-05-11] MEDS ORDERED: LORazepam 2 mg/ml vial IV ONE (11:45)
[2022-05-11] MEDS ORDERED: ondansetron/PF 4mg/2ml inj IV ONE (11:45)
[2022-05-11 11:59] LABS: ALANINE AMINOTRANSFERASE 48 U/L (12-78); ALBUMIN 4.5 G/DL (3.4-5.0); ALBUMIN/GLOBULIN RATIO 1.4 (1.1-1.5); ALKALINE PHOSPHATASE 101 IU/L (46-116); ANION GAP 14 (8-16); ASPARTATE AMINO TRANSFERASE 28 U/L (10-37); BLOOD UREA NITROGEN 19 MG/DL (7-18); BUN/CREATININE RATIO 19.6 (6.6-38.0); CALCIUM 10.2 MG/DL (8.5-10.1); CHLORIDE 99 MMOL/L (99-107); CREATININE 0.97 MG/DL (0.40-0.90); GLUCOSE 154 MG/DL (70-104); LIPASE 87 U/L (73-393); SODIUM 137 MMOL/L (135-145); TOTAL CARBON DIOXIDE 23.9 MMOL/L (24-32); TOTAL PROTEIN 7.8 G/DL (6.4-8.2); eGFR 59 ML/MIN
[2022-05-11 12:02] LABS: POTASSIUM 2.9 MMOL/L (3.5-5.1)
[2022-05-11] MEDS ORDERED: magnesium 2GM in 50ml NS 50 ML IV ONE (12:10)
[2022-05-11] MEDS ORDERED: potassium Cl 20 mEq SR tablet PO ONE (12:10)
[2022-05-11] MEDS ORDERED: cloNIDine 0.1 mg tablet PO ONE (12:45)
[2022-05-11] MEDS ORDERED: lisinopril 20mg tablet PO ONE (14:25)
[2022-05-11] MEDS ORDERED: ONDA4TAB12 PO (14:26)
[2022-05-11] MEDS ORDERED: LISI20TA28 PO (14:26)
[2022-05-11] MEDS ORDERED: PROC-8 PO (14:26)
[2022-05-11 14:36] LABS: URINE HCG NEGATIVE (NEG)
[2022-05-11 14:44] LABS: CLARITY,URINE CLOUDY (Clear); COLOR,URINE YELLOW (Yellow); GLUCOSE, URINE NEGATIVE (Neg); KETONES,URINE 40 mg/dl (Neg); LEUKOCYTE ESTERASE ,URINE NEGATIVE (Neg); NITRITES, URINE NEGATIVE (Neg); OCCULT BLOOD,URINE TRACE-INTACT (Neg); PROTEIN,URINE NEGATIVE (Neg); UROBILINOGEN,URINE 0.2 E.U/dL (0.2-1.0)
[2022-05-11] MEDS ORDERED: normal saline 1000ml 1,000 ML IV ONE ×2 (14:45→16:00)
[2022-05-11] MEDS ORDERED: famotidine/PF 10 mg/ml inj IV ONE (14:50)
[2022-05-11 14:52] LABS: UA COLLECTION TYPE CLN CATCH MIDSTREAM
[2022-05-11 14:53] LABS: BACTERIA,URINE 1+ /HPF (Neg); MUCUS STRANDS MANY /LPF (Neg); RBC,URINE 0-2 /HPF (0-2); SQUAMOUS EPITHELIAL CELL,UR MANY /LPF (FEW); WBC,URINE 0-4 /HPF (0-4)
[2022-05-11 14:55] LABS: URINE AMPHETAMINE SCREEN NEGATIVE (Neg); URINE BARBITUATE SCREEN NEGATIVE (Neg); URINE BENZODIAZEPINES SCREEN POSITIVE (Neg); URINE CANNABINOID SCREEN POSITIVE (Neg); URINE COCAINE SCREEN NEGATIVE (Neg); URINE METHADONE SCREEN NEGATIVE (Neg); URINE OPIATE SCREEN NEGATIVE (Neg); URINE PHENCYCLIDINE SCREEN NEGATIVE (Neg)
[2022-05-11 16:31] VITALS: BP 178/102
== END 2022-05-11 16:37 | disposition home or self-care (01) ==
LOC: ER 10:44
DX: R11.2 Nausea with vomiting, unspecified (principal); E87.6 Hypokalemia; F41.9 Anxiety disorder, unspecified; K21.9 Gastro-esophageal reflux disease without esophagitis; F12.90 Cannabis use, unspecified, uncomplicated; Z88.5 Allergy status to narcotic agent; Z90.49 Acquired absence of other specified parts of digestive tract; Z90.710 Acquired absence of both cervix and uterus
CPT/HCPCS: 36415; 80053; 80305; 81001; 81025; 83690; 85025; 96361; 96365; 96366; 96375; 99284; J1200; J2060; J2405; J3475; J3490; J7030